=== PATIENT | male | born 1990 | race Two or more races ===

== ENCOUNTER 2021-01-31 08:02 | Emergency (ER) | payer SELFPAY ==
[~2021-01-31] VITALS: Ht 167.6 cm; Wt 63.5 kg
[2021-01-31] MEDS ORDERED: CEPHALEXIN MONOHYDRATE 500 MG CAPSULE PO ONE ×2 (08:30→08:36)
[2021-01-31] MEDS ORDERED: TDAP [DIPH/PERTUSSIS/TET] 0.5 ML VIAL IM ONE ×2 (08:30→08:37)
[2021-01-31] MEDS ORDERED: HYDROCODONE/APAP 5/325MG TABLET PO ONE (08:30)
[2021-01-31] MEDS ORDERED: LIDOCAINE 2% 20 ML MDV TP ONE (08:30)
[2021-01-31] MEDS ORDERED: LIDOCAINE 2% 20 ML MDV ONE (08:36)
[2021-01-31] MEDS ORDERED: HYDROCODONE/APAP 5/325MG TABLET ONE (08:36)
[2021-01-31] MEDS ORDERED: IBUP-1957 PO (09:12)
[2021-01-31] MEDS ORDERED: CEPH250C PO (09:12)
[2021-01-31] MEDS ORDERED: HYDR-3972 PO (09:13)
--- NOTE | 2021-01-31 09:53 | NUR ---
Patient discharged to home in stable condition. Written and verbal after care instructions given. Patient verbalizes understanding of instruction.
[2021-01-31 09:54] VITALS: BP 120/78
== END 2021-01-31 09:55 | disposition home or self-care (01) ==
LOC: ER 08:07 → EDBD 08:07 → ER 09:55
DX: S62.525B Nondisplaced fracture of distal phalanx of left thumb, initial encounter for open fracture (principal); W26.8XXA Contact with other sharp object(s), not elsewhere classified, initial encounter; Y93.89 Activity, other specified; Y92.89 Other specified places as the place of occurrence of the external cause; Y99.8 Other external cause status
CPT/HCPCS: 29125; 73140; 90471; 90715; 99283; J3490